=== PATIENT | male | born 1990 | race Caucasian/White ===

== ENCOUNTER 2025-05-22 17:53 | Inpatient (IN) | payer OTHER, SELFPAY ==
[~2025-05-22] VITALS: Ht 180.3 cm; Wt 125.0 kg
[2025-05-22] MEDS: ONDANSETRON HCL 4 MG/2 ML VIAL IVP ONE (19:29)
[2025-05-22] MEDS: ACETAMINOPHEN 1000 MG/ISO-OSM 100 ML IV ONE (19:29)
[2025-05-22 20:01] LABS: PLATELET COUNT (AUTO) 373 K/uL (150-450); RED BLOOD CELL COUNT(AUTO) 4.95 MIL/uL (4.50-5.90); RED CELL DISTRIBUTION WIDTH 15.7 % (11.5-14.5); WHITE BLOOD COUNT (AUTO) 7.1 K/uL (4.5-11.0)
[2025-05-22 20:10] LABS: CALCIUM, TOTAL 8.6 mg/dL (8.8-10.5); CREATININE 0.92 mg/dL (0.60-1.30); GLOMERULAR FILTR. RATE CALC > 60 mL/min (>60); GLUCOSE,RANDOM 98 mg/dL (70-110); SODIUM SERUM 141 mmol/L (136-145); UREA NITROGEN, BLOOD 12 mg/dL (7-18)
[2025-05-22] MEDS ORDERED: IOHEXOL 300 MG/ML 100 ML VIAL ONE (20:12)
[2025-05-22] MEDS ORDERED: SODIUM CHLORIDE 0.9% 100 ML ONE (20:12)
[2025-05-22 20:25] LABS: RBC MORPHOLOGY COMMENT ABNORMAL RBC MORPH
[2025-05-22] MEDS: PANTOPRAZOLE SODIUM 40 MG/VIAL IVP ONE (21:37)
[2025-05-22 21:44] LABS: APPEARANCE,URINE CLEAR (CLEAR); GLUCOSE, URINE (UA) NEGATIVE (NEGATIVE); LEUKOCYTE ESTERASE ,URINE NEGATIVE (NEGATIVE); NITRATE,URINE NEGATIVE (NEGATIVE); OCCULT BLOOD,URINE NEGATIVE (NEGATIVE); SPECIFIC GRAVITIY, URINE 1.045 (1.003-1.030)
[2025-05-23 03:02] VITALS: BP 129/89; PULSE 67; RESP 19; TEMP 97.8; O2SAT 96
[2025-05-23] MEDS: SODIUM CHLORIDE 0.45% 1,000 ML IV SCH (04:18)
[2025-05-23 09:29] VITALS: BP 135/75; PULSE 63; RESP 18; TEMP 98; O2SAT 95
[2025-05-23] MEDS ORDERED: IPRATROPIUM BROMIDE 0.5 MG/2.5 ML NEB SOLUTION NEB PRN (10:30)
[2025-05-23] MEDS ORDERED: ALBUTEROL SULFATE 2.5 MG/0.5 ML NEB SOLUTION NEB PRN (10:30)
[2025-05-23] MEDS ORDERED: BISACODYL 10 MG RECTAL RECTAL SUPPOSITORY PR PRN (10:30)
[2025-05-23] MEDS ORDERED: ONDANSETRON HCL 4 MG/2 ML VIAL IVP PRN (10:30)
[2025-05-23] MEDS ORDERED: ACETAMINOPHEN 325 MG TABLET PO PRN (10:30)
[2025-05-23] MEDS ORDERED: MAGNESIUM HYDROXIDE SUSPENSION 30 ML UDCUP PO PRN (10:30)
[2025-05-23] MEDS ORDERED: ACET-3385 PO (10:56)
[2025-05-23] MEDS ORDERED: GABA-1181 PO (10:56)
[2025-05-23] MEDS ORDERED: OMEP-148 PO (10:56)
[2025-05-23] MEDS ORDERED: MELA5TAB40 PO (10:56)
[2025-05-23] MEDS ORDERED: LIDO120C7 TP (10:56)
[2025-05-23] MEDS ORDERED: MIRT-89 PO (10:56)
[2025-05-23] MEDS ORDERED: HYDR-4808 PO (10:56)
[2025-05-23] MEDS ORDERED: HYDR50CA7 PO (10:56)
[2025-05-23] MEDS ORDERED: GEMF-77 PO (10:56)
[2025-05-23] MEDS: MORPHINE SULFATE 2 MG/ML SYRINGE IVP PRN (13:00)
[2025-05-23] MEDS: HEPARIN SODIUM,PORCINE 5,000 UNITS/ML VIAL SQ SCH (15:36)
[2025-05-23 19:55] VITALS: BP 134/80; PULSE 77; RESP 18; TEMP 98.2; O2SAT 97
[2025-05-23] MEDS: DOCUSATE SODIUM 100 MG CAPSULE PO SCH (20:06)
[2025-05-23 22:16] VITALS: BP 135/88; PULSE 76; RESP 19; O2SAT 95
[2025-05-23] MEDS: ZOLPIDEM TARTRATE 5 MG TABLET PO PRN (22:29)
[2025-05-24 06:00] VITALS: BP 115/78; PULSE 69; RESP 18; TEMP 97.3; O2SAT 97
[2025-05-24] MEDS: PANTOPRAZOLE SODIUM 40 MG/VIAL IVP SCH (08:42)
[2025-05-24 09:02] VITALS: BP 144/47; PULSE 79; RESP 18; TEMP 97.7; O2SAT 96
[2025-05-24 10:49] LABS: PLATELET COUNT (AUTO) 374 K/uL (150-450); RED BLOOD CELL COUNT(AUTO) 5.42 MIL/uL (4.50-5.90); RED CELL DISTRIBUTION WIDTH 16.1 % (11.5-14.5); WHITE BLOOD COUNT (AUTO) 7.7 K/uL (4.5-11.0)
[2025-05-24 11:09] LABS: ASPARTATE AMINOTRANSFERASE 47 U/L (15-37); CALCIUM, TOTAL 8.9 mg/dL (8.8-10.5); CREATININE 0.84 mg/dL (0.60-1.30); GLOMERULAR FILTR. RATE CALC > 60 mL/min (>60); GLUCOSE,RANDOM 94 mg/dL (70-110); SODIUM SERUM 137 mmol/L (136-145); TOTAL PROTEIN, SERUM 7.9 g/dL (6.4-8.2)
[2025-05-24 11:24] LABS: UREA NITROGEN, BLOOD 12 mg/dL (7-18)
[2025-05-24 12:01] LABS: RBC MORPHOLOGY COMMENT ABNORMAL RBC MORPH
== END 2025-05-24 16:20 | disposition left against medical advice (07) | DRG 379 ==
LOC: EMS 17:53 → EDH 05-23 00:53 → 6S 05-23 02:43
PROVIDERS: ADMIT Hospitalist; ATTEND Hospitalist
PROC: 05HC33Z Insertion of Infusion Device into Left Basilic Vein, Percutaneous Approach (ICD-10-PCS; principal; 2025-05-23)
DX: K92.0 Hematemesis (principal); K21.9 Gastro-esophageal reflux disease without esophagitis; K44.9 Diaphragmatic hernia without obstruction or gangrene; F31.9 Bipolar disorder, unspecified; Z53.21 Procedure and treatment not carried out due to patient leaving prior to being seen by health care provider; F20.9 Schizophrenia, unspecified; D64.9 Anemia, unspecified; Z88.6 Allergy status to analgesic agent; Z85.028 Personal history of other malignant neoplasm of stomach
CPT/HCPCS: 36245; 36569; 74177; 76937; 80048; 80053; 81003; 82150; 83690; 85025; 93005; 96374; 96375; 99285; J0131; J1644; J2270; J2405; J2470; J7050; Q9967